=== PATIENT | female | born 1955 | race Caucasian/White ===

== ENCOUNTER → 2018-03-29 | Day surgery (SDC) | payer OTHER ==
[2018-03-24 10:22] VITALS: BMI 29.4
[~2018-03-29] MED LIST: LACTATED RINGERS 1,000 ML IV SCH; LIDOCAINE 1% 20 ML VIAL (10MG/ML) FOR IV START INTRADERMA ONE; LIDOCAINE 1% INJ 10MG/ML (20 ML MDV) ONE; PROPOFOL 10 MG/ML 20 ML VIAL IV ONE
--- NOTE | 2018-03-29 10:25 | P.GSHP ---
History of Present Illness H&P Date: 03/29/18 CHIEF COMPLAINT: GERD HISTORY OF PRESENT ILLNESS: The patient is a 62-year-old female who presents reports gastroesophageal reflux disease. Upper endoscopy was offered for further evaluation and management. PAST MEDICAL HISTORY: Please see list. PAST SURGICAL HISTORY: Please see list. MEDICATIONS: Please see list. ALLERGIES: Please see list. SOCIAL HISTORY: No illicit drug use FAMILY HISTORY: No reports of Crohn disease or ulcerative colitis. REVIEW OF ORGAN SYSTEMS: CONSTITUTIONAL: No reports of fevers or chills. GI: Denies any blood in stools or constipation. PHYSICAL EXAM: VITAL SIGNS: Stable GENERAL: Well-developed and pleasant in no acute distress. HEENT: No scleral icterus. Extraocular movements grossly intact. Moist buccal mucosa. NECK: Supple without lymphadenopathy. CHEST: Unlabored respirations. Equal bilateral excursions. CARDIOVASCULAR: Regular rate and rhythm. Distal 2+ pulses. ABDOMEN: Soft, nondistended. MUSCULOSKELETAL: No clubbing, cyanosis, or edema. ASSESSMENT: 1. Gastroesophageal reflux disease PLAN: 1. Recommend proceeding with an upper endoscopy Past Medical History Past Medical History: GERD/Reflux, Thyroid Disorder Additional Past Medical History / Comment(s): migraines, large hiatal hernia, osteopenia, History of Any Multi-Drug Resistant Organisms: None Reported Past Surgical History: Hysterectomy, Tonsillectomy, Tubal Ligation Past Anesthesia/Blood Transfusion Reactions: No Reported Reaction Smoking Status: Never smoker - Past Family History Father Family Medical History: Cancer, Pulmonary Embolus Medications and Allergies Home Medications Medication Instructions Recorded Confirmed Type Aspirin [Adult Low Dose Aspirin EC] 81 mg PO DAILY 03/24/18 03/24/18 History Calcium Carbonate 500 mg PO DAILY 03/24/18 03/24/18 History Glucosam/Nguyễn-Msm1/C/Dejan/Bosw 1 each PO DAILY 03/24/18 03/24/18 History [Glucosamine-Chondroitin Tablet] L.acidoph,Paracasei, B.lactis 1 each PO DAILY 03/24/18 03/24/18 History [Probiotic] Levothyroxine Sodium [Synthroid] 112 mcg PO DAILY 03/24/18 03/24/18 History Multivitamins, Thera [Multivitamin 1 tab PO DAILY 03/24/18 03/24/18 History (formulary)] [place]-3 Fatty Acids/Fish Oil [Fish 2 each PO DAILY 03/24/18 03/24/18 History Oil 1,000 mg Softgel] Omeprazole 40 mg PO QAM 03/24/18 03/24/18 History Turmeric Root Extract [Turmeric] 500 mg PO DAILY 03/24/18 03/24/18 History Allergies Allergy/AdvReac Type Severity Reaction Status Date / Time Sulfa (Sulfonamide Allergy Rash/Hives Verified 03/24/18 10:14 Antibiotics)
[2018-03-29 10:38] VITALS: RESP 16; TEMP 97.2
--- NOTE | 2018-03-29 11:25 | P.PCN ---
Date of Procedure: 03/29/18 Description of Procedure: PREOPERATIVE DIAGNOSIS: Gastroesophageal reflux disease. Dysphagia POSTOPERATIVE DIAGNOSIS: Gastroesophageal reflux disease. Dysphagia Gastritis. Diaphragmatic hiatal hernia without obstruction. OPERATION: Esophagogastroduodenoscopy with biopsies along antrum. SURGEON: Melissa Sinclair MD ANESTHESIA: MAC. INDICATIONS: The patient is a 62-year-old female who presents with a history of reflux disease. Benefits and risks of the procedure were described. Informed consent was obtained. DESCRIPTION: The patient was brought into the endoscopy suite and laid in the left lateral decubitus position. An Olympus gastroscope was passed along the posterior oropharynx down to the distal esophagus where the squamocolumnar junction was encountered at 35 cm from the incisors. The stomach was entered and no bile reflux was found. Additional findings are listed below. Biopsies with cold forceps were obtained of the antrum. The first through third portion of the duodenum was examined and unremarkable. Retroflexion of the scope confirmed Hill grade 4 lower esophageal valve. The squamocolumnar junction demonstrated LA grade A erosive esophagitis. The stomach was desufflated. The patient tolerated the procedure well. FINDINGS: Squamocolumnar junction 35 cm from the incisors. Diaphragmatic hiatus at 40 cm. Hiatal hernia 5 cm. Hill grade 4 lower esophageal valve. LA grade B erosive esophagitis. Gastritis, superficial Moderate distortion of her entire stomach suspicion for intrathoracic stomach No active duodenitis. RECOMMENDATIONS: Further recommendations pending results of pathology report. Upper endoscopy as needed. Will benefit from antireflux surgical procedure Plan - Discharge Summary New Discharge Prescriptions: No Action Turmeric Root Extract [Turmeric] 500 mg PO DAILY L.acidoph,Paracasei, B.lactis [Probiotic] 1 each PO DAILY Calcium Carbonate 500 mg PO DAILY [place]-3 Fatty Acids/Fish Oil [Fish Oil 1,000 mg Softgel] 2 each PO DAILY Multivitamins, Thera [Multivitamin (formulary)] 1 tab PO DAILY Glucosam/Nguyễn-Msm1/C/Dejan/Bosw [Glucosamine-Chondroitin Tablet] 1 each PO DAILY Aspirin [Adult Low Dose Aspirin EC] 81 mg PO DAILY Levothyroxine Sodium [Synthroid] 112 mcg PO DAILY Omeprazole 40 mg PO QAM Discharge Medication List Aspirin [Adult Low Dose Aspirin EC] 81 mg PO DAILY 03/24/18 [History] Calcium Carbonate 500 mg PO DAILY 03/24/18 [History] Glucosam/Nguyễn-Msm1/C/Dejan/Bosw [Glucosamine-Chondroitin Tablet] 1 each PO DAILY 03/24/18 [History] L.acidoph,Paracasei, B.lactis [Probiotic] 1 each PO DAILY 03/24/18 [History] Levothyroxine Sodium [Synthroid] 112 mcg PO DAILY 03/24/18 [History] Multivitamins, Thera [Multivitamin (formulary)] 1 tab PO DAILY 03/24/18 [History ] [place]-3 Fatty Acids/Fish Oil [Fish Oil 1,000 mg Softgel] 2 each PO DAILY [History] Omeprazole 40 mg PO QAM 03/24/18 [History] Turmeric Root Extract [Turmeric] 500 mg PO DAILY 03/24/18 [History]
[2018-03-29 11:28] VITALS: PULSE 66
[2018-03-29 12:22] VITALS: BP 142/80
== END | disposition home or self-care (01) ==
LOC: ORWHC2ENDO 10:06
PROVIDERS: ATTEND Surgery Plastic and Reconstructive Surgery
DX: K21.0 Gastro-esophageal reflux disease with esophagitis (principal); K22.10 Ulcer of esophagus without bleeding; K44.9 Diaphragmatic hernia without obstruction or gangrene; K29.70 Gastritis, unspecified, without bleeding; K31.89 Other diseases of stomach and duodenum; K22.2 Esophageal obstruction; E07.9 Disorder of thyroid, unspecified; G43.909 Migraine, unspecified, not intractable, without status migrainosus; M85.80 Other specified disorders of bone density and structure, unspecified site; Z79.82 Long term (current) use of aspirin; Z79.890 Hormone replacement therapy; Z79.899 Other long term (current) drug therapy; Z88.2 Allergy status to sulfonamides; Z90.710 Acquired absence of both cervix and uterus; Z98.51 Tubal ligation status
CPT/HCPCS: 88305; 43239; J2001; J2704

== ENCOUNTER → 2018-06-26 | Outpatient (CLI) | payer OTHER ==
--- NOTE | 2018-06-26 15:23 | FL ---
EXAMINATION: Single contrast Cervical and Thoracic Esophagram DATE OF EXAM: 06/26/2018 CLINICAL INDICATION: 62-year-old female with hiatal hernia and gastric volvulus repair 6 weeks ago. R ecurrent reflux. COMPARISON: 05/19/2018 Total Fluoroscopy Time: 2 minutes 2 seconds. Total images: 44 FINDINGS: The swallowing mechanism is normal and hypopharyngeal anatomy is preserved. The cervical and thoraci c portions have a normal course and caliber and normal motility. The mucosa is normal and no persistent filling defect is encountered. No hiatal hernia is present. Contrast passes into a distended stomach containing prominent mottled d ebris. With Valsalva and positional maneuvers, there is severe gastroesophageal reflux to the thoraci c inlet. A postprocedure radiograph at 15 minutes shows persistent contrast in the stomach without any passage into small bowel. IMPRESSION: 1. No recurrent hiatal hernia. 2. However, there is severe gastroesophageal reflux to the level of the thoracic inlet. 3. Contrast passes into an air and debris distended stomach. The patient reports last meal at 6:30 AM . Also, a 15 minute post procedure radiograph was obtained and redemonstrates contrast pooled in the distended stomach. No passage into proximal small bowel. Correlate for possible etiologies such as ga stroparesis.
== END | disposition home or self-care (01) ==
LOC: RADFLWHC 08:24
PROVIDERS: ATTEND Surgery Plastic and Reconstructive Surgery
DX: K21.9 Gastro-esophageal reflux disease without esophagitis (principal); K44.9 Diaphragmatic hernia without obstruction or gangrene
CPT/HCPCS: 74220

== ENCOUNTER → 2024-07-04 | Outpatient (CLI) | payer MEDICARE ==
[2024-07-04 13:01] LABS: Partial Thromboplastin Time 27.5 sec (22.0-30.0); Prothrombin Time 10.7 sec (10.0-12.5)
[2024-07-04 16:39] LABS: HCT 46.5 % (37.2-46.3); HGB 14.6 g/dL (12.0-15.0); MCH 28.4 pg (27.0-32.0); MCHC 31.4 g/dL (32.0-37.0); MCV 90.5 FL (80.0-97.0); Mean Platelet Volume 10.8 FL (9.5-12.2); NRBC Per 100 WBC 0 X 10*3/uL (0.00-0.01); Platelet Count 226 X 10*3/uL (140-440); RBC 5.14 X 10*6/uL (4.10-5.20); RDW 13.1 % (11.5-14.5); WBC 6.71 X 10*3/uL (4.50-10.00)
[2024-07-04 16:48] LABS: ALT 20 U/L (8-44); AST 21 U/L (13-35); Albumin 4.3 g/dL (3.8-4.9); Albumin/Globulin Ratio 1.79 Ratio (1.60-3.17); Alkaline Phosphatase 75 U/L (41-126); BUN/Creat Ratio 26.22 Ratio (12.00-20.00); Blood Urea Nitrogen 23.6 mg/dL (9.0-27.0); Calcium 10.6 mg/dL (8.7-10.3); Carbon Dioxide 30.2 mmol/L (21.6-31.8); Chloride 102 mmol/L (96-109); Globulin 2.4 g/dL (1.6-3.3); Glucose 74 mg/dL (70-110); Potassium 5.2 mmol/L (3.5-5.5); Sodium 141 mmol/L (135-145); Total Bilirubin 0.2 mg/dL (0.3-1.2); Total Protein 6.7 g/dL (6.2-8.2)
== END | disposition home or self-care (01) ==
LOC: LABWHC1 10:24
PROVIDERS: ATTEND Orthopaedic Surgery
DX: Z01.818 Encounter for other preprocedural examination (principal); Z22.322 Carrier or suspected carrier of Methicillin resistant Staphylococcus aureus; E11.9 Type 2 diabetes mellitus without complications
CPT/HCPCS: 36415; 80053; 83036; 85027; 85610; 85730; 86850; 86900; 86901; 87070; 93005

== ENCOUNTER 2024-07-13 05:32 | Day surgery (SDC) | payer MEDICARE, OTHER ==
[2024-07-10 12:28] VITALS: BMI 31.3
[2024-07-13] MEDS ORDERED: TRANEXAMIC 1,000 MG/100ML-NACL 1,000 MG in SALINE 1 100ML.BAG IV PRN (06:00)
[2024-07-13] MEDS ORDERED: TRANEXAMIC 1,000 MG/100ML-NACL 1,000 MG in SALINE 1 100ML.BAG IVPB PRN (06:00)
[2024-07-13] MEDS: IV FLUID CONTINUATION 1,000 ML IV ONE (06:27)
[2024-07-13] MEDS: LACTATED RINGERS 1,000 ML IV SCH (06:48)
[2024-07-13] MEDS: KETOROLAC 15 MG/ML 1 ML VIAL IVP PRN (06:54)
[2024-07-13] MEDS: ONDANSETRON 4 MG/2 ML VIAL IVP PRN (06:54)
[2024-07-13] MEDS: DEXAMETHASONE SOD PHOSPHATE 10 MG/ML 1 ML VIAL IV PRN (06:55)
[2024-07-13] MEDS: oxyCODONE ER 10 MG TAB.ER.12H PO PRN (06:55)
[2024-07-13] MEDS: DOCUSATE 100 MG CAP PO PRN (06:55)
[2024-07-13] MEDS: ACETAMINOPHEN TAB 500 MG TAB PO PRN (06:55)
[2024-07-13] MEDS: FAMOTIDINE 20 MG/2 ML VIAL IVP PRN (06:55)
[2024-07-13] MEDS: MIDAZOLAM 2 MG/2 ML VIAL IV PRN (07:02)
--- NOTE | 2024-07-13 07:22 | P.ANPRN ---
Procedure Note - Anesthesia - Nerve Block Performed Left Dimitrios Single Time Out Performed: Yes Date of Procedure: 07/13/24 Procedure Start Time: : Procedure Stop Time: :07 Location of Patient: PreOp Indication: Acute Post-Operative Pain, Analgesia, Requested by Surgeon Sedation Type: Sedate with meaningful contact maintained Preparation: Sterile Prep Position: Supine Catheter: None Needle Types: [place] Needle Gauge: 21 Ultrasound used to visualize needle placement: Yes Ultrasound used to observe medication spread: Yes Injectate: 0.5% Ropivacaine (see comment for volume) (Ropiv 20ml+Decadron 4mg) Blood Aspirated: No Pain Paresthesia on Injection Noted: No Resistance on Injection: Normal Image Stored and Saved: Yes Events: Uneventful and Well Tolerated
[2024-07-13] MEDS ORDERED: LIDOCAINE 1% INJ 10MG/ML (20 ML MDV) ONE (07:36)
[2024-07-13] MEDS ORDERED: NEOSTIGMINE 1 MG/ML 10 ML VIAL ONE (07:36)
[2024-07-13] MEDS ORDERED: PHENYLEPHRINE-0.9% NACL SYG 1,000 MCG/10 ML SYRINGE ONE (07:36)
[2024-07-13] MEDS ORDERED: GLYCOPYRROLATE 0.2 MG/ML 2 ML VIAL ONE (07:36)
[2024-07-13] MEDS ORDERED: SUCCINYLCHOLINE CHLORIDE 200 MG/10 ML VIAL IV ONE (07:36)
[2024-07-13] MEDS ORDERED: KETAMINE HCL IN 0.9 % NACL 50 MG/5 ML SYRINGE ONE (07:36)
[2024-07-13] MEDS ORDERED: TRANEXAMIC 1,000 MG/100ML-NACL PREMIX BAG ONE (07:36)
[2024-07-13] MEDS ORDERED: ROPIVACAINE 5 MG/ML 30 ML VIAL ONE (07:36)
[2024-07-13] MEDS ORDERED: MIDAZOLAM 2 MG/2 ML VIAL ONE (07:36)
[2024-07-13] MEDS ORDERED: DEXAMETHASONE SOD PHOSPHATE 4 MG/ML 1 ML VIAL ONE (07:36)
[2024-07-13] MEDS ORDERED: fentaNYL (PF) 50 MCG/ML 2 ML AMP ONE (07:36)
[2024-07-13] MEDS ORDERED: ROCURONIUM 10 MG/ML (5 ML VIAL) IV ONE (07:36)
[2024-07-13] MEDS ORDERED: PROPOFOL 10 MG/ML 20 ML VIAL IV ONE (07:36)
[2024-07-13] MEDS: ROPIVACAINE/EPI/CLONIDINE/KET 50 ML SYRINGE MISCELLANE PRN (08:13)
[2024-07-13] MEDS: LACTATED RINGERS 1,000 ML IV ONE (09:03)
[2024-07-13] MEDS ORDERED: HYDROmorphone 0.5 MG/0.5 ML SYRINGE IVP PRN ×3 (09:11)
[2024-07-13] MEDS ORDERED: MAGNESIUM HYDROXIDE 2,400 MG/30 ML CUP PO PRN (09:11)
[2024-07-13] MEDS ORDERED: ONDANSETRON 4 MG/2 ML VIAL IVP PRN (09:11)
[2024-07-13] MEDS ORDERED: hydrOXYzine pamoate 25 MG CAP PO PRN (09:11)
[2024-07-13] MEDS ORDERED: NALOXONE 0.4 MG/ML 1 ML VIAL IV PRN (09:11)
[2024-07-13] MEDS ORDERED: HYDROcodone/APAP 10-325MG 1 EACH TAB PO PRN (09:11)
--- NOTE | 2024-07-13 09:31 | FL ---
EXAMINATION TYPE: FL guidance operating room, XR Hip Complete LT DATE OF EXAM: 07/13/2024 9:23 AM COMPARISON: Pre Operative Images if available both CT/MRI or plain film CLINICAL INDICATION: Female, 68 years old with history of Left Hip-Ant; TECHNIQUE: FL guidance operating room, XR Hip Complete LT, multiple fluoroscopic images provided for procedure. Total fluoroscopy time: 30 seconds Total submitted images to PACS: 7 DAP: 2.4088 mGym2 Gycm2 uGym2 cGycm2 or equivalent. FINDINGS: Fluoroscopic images during internal fixation/arthroplasty demonstrate fixation hardware in appropriat e position. Hardware appears intact. No immediate complication identified. IMPRESSION: 1. No evidence for intraoperative complication. 2. Please see the operative/procedural note for further details. [facility], , 07/13/2024 9:29 AM
--- NOTE | 2024-07-13 09:37 | P.OP ---
Date of Procedure: 07/13/24 Preoperative Diagnosis: 1. Severe left hip osteoarthritis 2. Lumbar spine DDD 3. History of DVT Postoperative Diagnosis: Same Procedure(s) Performed: Left direct anterior total hip arthroplasty Implants: 1. Tomy Trident II Acetabular Cup, Size #50 2. Orange Insignia Size # 4 Femoral Stem, Standard Offset 3. Dual Mobility OD38 mm, ID28 mm, -4 mm neck Anesthesia: GETA Surgeon: Frankie Mg Marksmanship Instructor #1: Moody Lama Estimated Blood Loss (ml): 400 IV fluids (ml): 1,000 Pathology: none sent Condition: stable Disposition: PACU Indications for Procedure: The patient has a long standing history of left hip pain. She was treated nonsurgically and continued to have symptoms. She had a diagnostic left hip injection 3 months before surgery and had complete relief of her symptoms. Based on her physical exam, x-ray findings of severe arthritis, and response to diagnostic hip injection we both agreed to proceed with a total hip replacement. She understands that due to degenerative changes in her back she may still have symptoms attribute able to degenerative changes in the lumbar spine. I had a long discussion with the patient in the office on the potential risks and complications of an elective total hip replacement through a direct anterior approach. Risks discussed include, but are certainly not limited to, risks from anesthesia, superficial infection requiring local wound care or antibiotics, deep micheal-prosthetic joint infection and the treatment required to eradicate infection, intraoperative fracture, postoperative periprosthetic fracture, damage to local blood vessels or nerves particularly the lateral femoral cutaneous nerve, delayed wound healing requiring local wound care or possibly surgical debridement, hip dislocation, leg length discrepancy, soft tissue irritation around the total hip implant such as iliopsoas tendinitis or trochanteric bursitis, wear and osteolysis from the implants, squeaking or audible noises, groin pain, thigh pain, heterotopic ossification, stiffness, aseptic loosening of the implants, dissatisfaction with surgical outcome, need for revision surgery, DVT, PE, swelling of the operative extremity, acute coronary event, stroke, failure to thrive, and possibly loss of life or limb. The patient understands that while these are the most common complications after an elective hip replacement there are certainly other less common complications possible. They were given ample time to ask questions regarding the potential complications of a hip replacement. Following our discussion the patient provided their verbal and written consent to go forward with an elective total hip replacement. Operative Findings: Severe hip osteoarthritis Description of Procedure: The patient was identified in the preoperative holding area and the correct hip was marked with my initials. I reviewed the procedure and consent with the patient. All of their questions were answered. The patient was then brought back into the operating room by anesthesia. While on the [facility] anesthesia was administered by the anesthesia team. Preoperative antibiotics and tranexamic acid were also given. After the patient was under anesthesia I examined their ankles to determine their preoperative leg length discrepancy. The skin over the anterior aspect of the hip was shaved to remove hair over the site of planned incision. Both feet and ankles were padded with webril and boots for the [place] were applied. The patient was then carefully transferred onto the [place] table. A perineal post was immediately placed. The arms were placed on arm holders and were well-padded. Both boots were secured to the spars on the [place] table. The patient was positioned so that the pelvis was centered over the post. Nonsterile drapes were applied. A timeout was performed identifying the correct patient, operative extremity, and procedure. At this point fluoroscopy was brought in to take preoperative images of the pelvis and operative hip. Using the standing AP pelvis from the office as a template, a comparable image was obtained with fluoroscopy. A metallic bar was used to create a bi-ischial line for use as a reference to leg length adjustments during the procedure. Global offset was also measured on both the operative and nonoperative leg. Fluoroscopy was then brought out and a pre-scrub using a chlorhexidine scrub brush was performed. The operative limb was then prepped and draped in the standard sterile fashion. An anterior longitudinal incision was made lateral and distal to the ASIS. The skin and subcutaneous tissues were incised sharply. The underlying tensor fascia was identified and incised in its midportion. The fascia was dissected free from the underlying muscle and the muscle belly was retracted. A blunt tipped cobra retractor was placed over the superior neck under the muscle fibers of the gluteus minimus. The deep enveloping fascia of the tensor was incised. The anterior leash of vessels were then identified and cauterized. The fascia between the rectus and the capsule was then incised and the pre-capsular fat was excised. A second Cobra was placed inferior to the neck. The interval between the rectus and iliocapsularis and the hip capsule was developed and a retractor was placed carefully over the anterior rim of the acetabulum. A T-shaped anterior capsulotomy was performed. The superior capsular leaflet was left in place in the inferior capsular flap was excised. The Cobra retractors were placed intracapsularly. We then made a femoral neck osteotomy according to preoperative and intraoperative templating and confirmed the level of the osteotomy using fluoroscopic imaging. The femoral head was removed, passed off to the back table, and sized. The superior capsular flap was excised. Retractors were placed circumferentially exposing the acetabulum. We then circumferentially debrided the acetabulum free of labrum and osteophytes. The pulvinar was removed to fully visualize the cotyloid fossa. We then sequentially reamed to achieve peripheral fit and excellent bleeding subchondral bone. The socket was thoroughly irrigated. The acetabular component was impacted into the appropriate position using fluoroscopy to guide version, inclination, and depth of insertion taking care to have a comparable image of the AP pelvis to the standing image taken in the office. An excellent press-fit was achieved and final position was confirmed using fluoroscopy. The press fit was augmented with bony cancellus dome screws. The liner was then impacted into the socket. Attention was then turned to the femur. The remnant dorsal lateral capsule was excised. The short external rotators were visible and protected. A bone hook was used to confirm appropriate translation of the trochanter away from the acetabulum. The leg was then extended and adducted and the bone hook was used to elevate the femur for broaching. A box osteotome and blunt tipped canal sound was then utilized to gain access to the femoral canal. We then sequentially broached the femur in appropriate anteversion until excellent torsional stability was achieved. The neck cut was brought flush to the trial broach with a calcar planar. A trial neck and head were then placed onto the broach and the hip was atraumatically reduced under direct visualization. External rotation to 90 was performed to assess stability. Fluoroscopy was brought in. An AP and lateral fluoroscopic image of the proximal femur was obtained to assess position and fill of the trial broach. An AP of the pelvis was then obtained and matched to the preoperative image taken. A bi-ischial bar was then placed and measurements were taken to assess changes in length and o ffset. The hip was then carefully dislocated, the proximal femur was exposed, and the trial implants were removed. The wound and proximal femur was thoroughly irrigated using sterile saline and pulsatile lavage. The final femoral implant was dispensed and gently tapped into place generating an excellent press-fit. The trunnion was cleansed and the final head was tapped into place to engage the Long taper. The acetabulum was irrigated and visualized to be free of debris. The hip was carefully reduced. Stability was checked clinically with external rotation to 90 and there was no evidence of instability. Final fluoroscopic images were taken. The wound was then thoroughly irrigated and soaked with a dilute Betadine rinse for 3 minutes. 3 L of sterile saline was irrigated through the wound using pulsatile lavage. Local anesthetic cocktail was injected into the soft tissues around the surgical field. The wound was then closed in layers. A sterile dressing was placed over the surgical incision. The drapes were taken down and the patient was carefully transferred off of the [place] table. Following removal of the boots the leg lengths felt acceptable. The patient was then taken to recovery room having tolerated the procedure well. Moody Corcoran was required as a skilled social and human services assistant due to the complexity of surgery for patient positioning, draping, exposure, retraction, closure of wound, and application of dressing. PLAN: The patient can weight-bear as tolerated on the operative extremity. 2 doses of postoperative antibiotics. DVT prophylaxis will resume home Eliquis dose tomorrow. PT for gait training.
[2024-07-13] MEDS: HYDROmorphone 0.5 MG/0.5 ML SYRINGE IVP PRN (10:06)
[2024-07-13] MEDS: SODIUM CHLORIDE 0.9% 1,000 ML IV SCH (11:08)
[2024-07-13] MEDS: ACETAMINOPHEN TAB 325 MG TAB PO PRN (17:05)
[2024-07-13] MEDS: SENNOSIDES-DOCUSATE SODIUM 1 EACH TAB PO SCH (20:14)
[2024-07-14] MEDS: HYDROcodone/APAP 5-325MG 1 EACH TAB PO PRN (02:52)
[2024-07-14] MEDS: FAMOTIDINE 20 MG TAB PO SCH (07:48)
[2024-07-14] MEDS: APIXABAN 2.5 MG TABLET PO SCH (07:48)
--- NOTE | 2024-07-14 08:36 | P.DS ---
Providers Date of admission: 07/13/2024 Attending physician: Frankie Mg Consults: 07/13/24 09:11 Consult Physician Routine Consulting Provider: Essence Cavazos Consult Reason/Comments: Postop left total hip arthroplasty medical management Do you want consulting provider notified?: Yes Primary care physician: Kasandra Gallegos MD Hospital Course: the patient is a very pleasant 68-year-old female who was admitted under my care yesterday. She underwent uncomplicated total hip replacement. Following surgery she was transferred to the orthopedic floor. She received 2 doses of postoperative antibiotics. She was transitioned from IV to oral pain medication. She was seen on postoperative day #1 and was doing well. The dressing over her left hip was intact. Her thigh was soft and compressible. Femoral nerve function was intact. She was able to actively plantarflex and dorsiflex her ankle and her toes. She worked with physical therapy and did well. She was ultimately cleared for discharge home. Patient Condition at Discharge: Good Plan - Discharge Summary Discharge Rx Participant: Yes New Discharge Prescriptions: New Aspirin 81 mg PO BID #60 tab Docusate [Colace] 100 mg PO BID #60 capsule HYDROcodone/APAP 5-325MG [[place] 5] 1 - 2 each PO Q6HR PRN #48 tab PRN Reason: Pain Ondansetron [Zofran] 4 mg PO Q6HR PRN #30 tab PRN Reason: Nausea Omeprazole 20 mg PO DAILY #30 tab No Action Aspirin [Adult Low Dose Aspirin EC] 81 mg PO DAILY Multivitamins, Thera [Multivitamin (formulary)] 1 tab PO DAILY Turmeric (Unknown Dose) 1 tab PO DAILY Omeprazole 20 mg PO HS [place]-3/Dha/Epa/Fish Oil [Fish Oil 1,000 mg Softgel] 1 each PO DAILY Calcium Carbonate [Calcium] 600 mg PO DAILY Vitamin D (Unknown Dose) 1 tab PO DAILY Apixaban [Eliquis] 2.5 mg PO BID Levothyroxine Sodium [Synthroid] 175 mcg PO DAILY Discharge Medication List Aspirin [Adult Low Dose Aspirin EC] 81 mg PO DAILY 03/24/18 [History] Apixaban [Eliquis] 2.5 mg PO BID 07/10/24 [History] Calcium Carbonate [Calcium] 600 mg PO DAILY 07/10/24 [History] Levothyroxine Sodium [Synthroid] 175 mcg PO DAILY 07/10/24 [History] Multivitamins, Thera [Multivitamin (formulary)] 1 tab PO DAILY 07/10/24 [History] [place]-3/Dha/Epa/Fish Oil [Fish Oil 1,000 mg Softgel] 1 each PO DAILY 07/10/24 [History] Omeprazole 20 mg PO HS 07/10/24 [History] Turmeric (Unknown Dose) 1 tab PO DAILY 07/10/24 [History] Vitamin D (Unknown Dose) 1 tab PO DAILY 07/10/24 [History] Aspirin 81 mg PO BID #60 tab 07/13/24 [Rx] Docusate [Colace] 100 mg PO BID #60 capsule 07/13/24 [Rx] HYDROcodone/APAP 5-325MG [[place] 5] 1 - 2 each PO Q6HR PRN #48 tab 07/13/24 [Rx] Omeprazole 20 mg PO DAILY #30 tab 07/13/24 [Rx] Ondansetron [Zofran] 4 mg PO Q6HR PRN #30 tab 07/13/24 [Rx] Follow up Appointment(s)/Referral(s): Frankie Mg MD [Medical Doctor] - 1 Week Activity/Diet/Wound Care/Special Instructions: 1. Weight-bear as tolerated on your operative extremity unless instructed otherwise. Use a walker or other assistive device to ambulate. 2. Leave surgical dressing in place. If your dressing becomes saturated with blood, there is drainage, or the dressing becomes loose please contact the office. 3. It is okay to shower with your surgical dressing, but do not submerge in water (no hot tubs, bath's, swimming etc.) 4. Take your blood clot prevention medication as prescribed. Resume home Eliquis and aspirin. This will be DVT prophylaxis. (aspirin, Eliquis, Xarelto, and Plavix are commonly prescribed medications for blood clot prevention) 5. While taking [place] or Percocet for pain take a stool softener (Ex: Colace) and drink lots of water. 6. Keep all follow-up appointments as scheduled. You will usually be seen in 1-2 weeks following surgery. 7. Please contact the office with any questions or concerns [phone] Discharge Disposition: HOME WITH HOME HEALTH SERVICES
[2024-07-14 09:06] LABS: Basophils # (A) 0.01 X 10*3/uL (0.00-0.10); Basophils % (A) 0.1 %; Eosinophils # (A) 0.01 X 10*3/uL (0.04-0.35); Eosinophils % (A) 0.1 %; HCT 30.6 % (37.2-46.3); HGB 9.7 g/dL (12.0-15.0); Lymphocytes % (A) 12.6 %; MCH 28.7 pg (27.0-32.0); MCHC 31.7 g/dL (32.0-37.0); MCV 90.5 FL (80.0-97.0); Mean Platelet Volume 11.3 FL (9.5-12.2); Monocytes % (A) 8.4 %; NRBC Per 100 WBC 0 X 10*3/uL (0.00-0.01); Neutrophils # (A) 9.29 X 10*3/uL (1.80-7.70); Neutrophils % (A) 78.4 %; Platelet Count 195 X 10*3/uL (140-440); RBC 3.38 X 10*6/uL (4.10-5.20); RDW 13.4 % (11.5-14.5); WBC 11.86 X 10*3/uL (4.50-10.00)
[2024-07-14 09:54] VITALS: BP 97/51; PULSE 70; RESP 17; TEMP 98.4
--- NOTE | 2024-07-14 21:01 | P.CONS ---
History of Present Illness - Reason for Consult Consult date: 07/14/24 Medical management - Chief Complaint Left hip arthroplasty - History of Present Illness Patient is a 68-year-old female with a known history of DVT on anticoagulation with Eliquis, hypothyroidism, GERD, migraine headaches who was admitted to hospital for elective left total hip arthroplasty. Patient is status post left direct anterior total hip arthroplasty. Postoperative day 1. Currently denied any complaints of worsening pain. Able to sit in the chair. No complaints of chest pain or shortness of breath. No cough or sputum production. Postoperatively blood pressure went down to 96/52 mmHg. Denied any dizziness or lightheadedness. Laboratory data showed WBC 11.8 hemoglobin 9.7 and platelets 195 Review of Systems Constitutional: Patient denies any fever or chills . No generalized weakness or weight loss. Abdomen: Patient denied nausea vomiting and diarrhea and abdominal pain. Cardiovascular: Patient denies any chest pain or short of breath no palpitations. Respiratory: patient denied any cough or sputum production. No shortness of breath Neurologic: Patient denied any numbness or tingling. no headache. Musculoskeletal: Patient denies any complaints of joint swelling or deformity. Skin: Negative Psychiatric: Negative Endocrine: No heat or cold intolerance. No recent weight gain. Genitourinary: No dysuria or hematuria. All other 14 point ROS negative except the above Past Medical History Past Medical History: Deep Vein Thrombosis (DVT), GERD/Reflux, Thyroid Disorder Additional Past Medical History / Comment(s): Migraines, osteopenia, hx DVT in vein leaving stomach after hiatal hernia surgery, hx left leg/groin DVT in 2021 - unknown cause. History of Any Multi-Drug Resistant Organisms: None Reported Past Surgical History: Hysterectomy, Tonsillectomy, Tubal Ligation Additional Past Surgical History / Comment(s): EGD, COLONOSCOPY, HIATAL HERNIA REPAIR. Past Anesthesia/Blood Transfusion Reactions: No Reported Reaction Past Psychological History: No Psychological Hx Reported Smoking Status: Never smoker Past Alcohol Use History: None Reported Past Drug Use History: None Reported - Past Family History Father Family Medical History: Cancer, Pulmonary Embolus Medications and Allergies Home Medications Medication Instructions Recorded Confirmed Type Apixaban [Eliquis] 2.5 mg PO BID 07/10/24 07/10/24 History Calcium Carbonate [Calcium] 600 mg PO DAILY 07/10/24 07/10/24 History Levothyroxine Sodium [Synthroid] 175 mcg PO DAILY 07/10/24 07/13/24 History Multivitamins, Thera [Multivitamin 1 tab PO DAILY 07/10/24 07/10/24 History (formulary)] Palmer-3/Dha/Epa/Fish Oil [Fish Oil 1 each PO DAILY 07/10/24 07/10/24 History 1,000 mg Softgel] Turmeric (Unknown Dose) 1 tab PO DAILY 07/10/24 07/10/24 History Vitamin D (Unknown Dose) 1 tab PO DAILY 07/10/24 07/10/24 History Aspirin 81 mg PO BID #60 tab 07/13/24 Rx Docusate [Colace] 100 mg PO BID #60 capsule 07/13/24 Rx HYDROcodone/APAP 5-325MG [[place] 5] 1 - 2 each PO Q6HR PRN #48 tab 07/13/24 Rx Omeprazole 20 mg PO DAILY #30 tab 07/13/24 Rx Ondansetron [Zofran] 4 mg PO Q6HR PRN #30 tab 07/13/24 Rx Allergies Allergy/AdvReac Type Severity Reaction Status Date / Time Sulfa (Sulfonamide Allergy Rash/Hives Verified 07/13/24 06:17 Antibiotics) Physical Exam Vitals: Vital Signs Temp Pulse Pulse Resp BP Pulse Ox 07/14/24 07:35 98.4 F 70 17 97/51 95 07/14/24 02:23 98.2 F 63 16 113/62 95 07/13/24 19:30 97.9 F 55 L 17 108/64 95 07/13/24 13:20 56 L 99/61 97 07/13/24 13:05 55 L 100/62 96 07/13/24 12:50 58 L 99/62 99 07/13/24 12:35 63 96/52 98 07/13/24 12:20 62 94/58 98 07/13/24 12:05 58 L 95/59 98 07/13/24 12:01 55 L 54 L 17 07/13/24 11:50 56 L 100/62 97 07/13/24 11:34 95/60 07/13/24 11:14 97.6 F 54 L 17 80/45 95 07/13/24 10:30 55 L 16 108/54 99 Intake and Output 07/13/24 07/14/2407/14/24 22:59 06:59 14:59 Other: # Voids 2 3 PHYSICAL EXAMINATION: Patient is lying in the bed comfortably, no acute distress, awake alert and oriented.. HEENT: Normocephalic. Neck is supple. Pupils reactive. Nostrils clear. Oral cavity is moist. Neck reveals no JVD, carotid bruits, or thyromegaly. CHEST EXAMINATION: Trachea is central. Symmetrical expansion. Lung wesley clear to auscultation and percussion. CARDIAC: Normal S1, S2 with no gallops. No murmurs ABDOMEN: Soft. Bowel sounds normal. No organomegaly. No abdominal bruits. Extremities: reveal no edema. No clubbing or cyanosis Neurologically awake, alert, oriented x3 with well-coordinated movements. No focal deficits noted Skin: No rash or skin lesions. Psychiatric: Coperative. Nonsuicidal Musculoskeletal: No joint swelling or deformity. Normal range of motion. Left hip surgical site intact. Minimal swelling. Results CBC & Chem 7: 07/14/24 05:25 Labs: Abnormal Lab Results - Last 24 Hours (Table) 07/14/24 Range/Units 05:25 WBC 11.86 H (4.50-10.00) X 10*3/uL RBC 3.38 L (4.10-5.20) X 10*6/uL Hgb 9.7 L (12.0-15.0) g/dL Hct 30.6 L (37.2-46.3) % MCHC 31.7 L (32.0-37.0) g/dL Immature Gran # 0.05 H (0.00-0.04) X 10*3/uL Neutrophils # 9.29 H (1.80-7.70) X 10*3/uL Eosinophils # 0.01 L (0.04-0.35) X 10*3/uL Assessment and Plan Assessment: Status post left direct anterior total hip arthroplasty. Postoperative day 1 Mild leukocytosis likely to postoperative inflammation Normocytic anemia with hemoglobin 9.7. Previous hemoglobin was 14.6 in June 2024. Acute blood loss anemia likely due to surgery. Continue to monitor H&H History of left leg DVT patient is on anticoagulation with Eliquis Hypothyroidism GI prophylaxis with omeprazole Plan: Patient will be continued on incentive spirometry and PT OT. Continue to monitor H&H. Continue with home medications. Patient was advised to follow-up with primary care physician next 3 to 5 days for repeat CBC and BMP. Patient is being discharged home today. Continue with Eliquis and patient is also on aspirin 81 mg daily. Further recommendations based on the clinical course. Thank you kindly for your consult. Time with Patient: Greater than 30
== END 2024-07-14 12:05 | disposition home health service (06) ==
LOC: OR 05:32 → 4SSUR 09:22 → OR 07-14 12:05
PROVIDERS: ATTEND Orthopaedic Surgery
DX: M51.369 Other intervertebral disc degeneration, lumbar region without mention of lumbar back pain or lower extremity pain (principal); M16.12 Unilateral primary osteoarthritis, left hip; E03.9 Hypothyroidism, unspecified; K21.9 Gastro-esophageal reflux disease without esophagitis; G43.909 Migraine, unspecified, not intractable, without status migrainosus; Z86.718 Personal history of other venous thrombosis and embolism; Z88.2 Allergy status to sulfonamides; Z79.82 Long term (current) use of aspirin; Z79.890 Hormone replacement therapy; Z79.899 Other long term (current) drug therapy; Z79.01 Long term (current) use of anticoagulants
CPT/HCPCS: 97161; 64447; 85025; 73502; 27130; C1776; J2250; J0330; J1100 ×2; J2710; J0690; J2405; J2003; J3010; J3490; J2795; J1885; J2704; J1171; J2371; J1596